=== PATIENT | female | born 1965 | race African-American/Black ===

== ENCOUNTER 2016-06-12 18:29 | Emergency (ER) | payer OTHER, MEDICAID ==
[2016-06-12] MEDS ORDERED: TORADOL 30 MG VIAL IM ONE (18:33)
[2016-06-12] MEDS ORDERED: TORADOL 30 MG VIAL ONE (18:34)
[2016-06-12] MEDS ORDERED: ADACEL TDaP IM ONE ×2 (18:34)
[2016-06-12 18:41] VITALS: BP 148/68; BMI 20.9
--- NOTE | 2016-06-12 19:11 | DR.GENAD ---
HPI - PCP Primary Care Physician: demario - Complaint/Symptoms Chief Complaint:: dog bite to right lower leg. puncture wound x 2 to outside of leg. puncture site x 1 to inside of leg - Nurses notes reviewed Nurses Notes Review: Yes - Source History Provided: Patient - Mode of Arrival Mode of Arrival: Ambulatory - Timing Onset of Chief Complaint: 06/12/16 - Duration Duration: Days PMH - PMH Past Medical History: Yes Past Medical History: Anxiety Past Surgical History: Yes Surgical History: Cholecystectomy Past Surgical History Comment: hernia repair, carpel tunnel - Family History History of Family Medical Conditions: Yes Family Medical History: Diabetes Mellitus, Cancer, Hypertension - Social History Does patient currently use any type of tobacco product: No Have you used tobacco products in the last 12 months: No Type of Tobacco Use: Cigarettes Does any household member use tobacco: No Alcohol Use: Occasionally Do you use any recreational Drugs:: No Lives With: Family Lives Where: Home - infectious screening In the last 2 months have you had wt loss of >10#?: NO Have you had fever, night sweats or hemotysis?: No Have you traveled outside the country in the last 6 months?: No Isolation: Standard PE - Vital Signs Vitals: Pulse Rate 104 Respiratory Rate 22 Blood Pressure 148/68 O2 Sat by Pulse Oximetry 98 - Discharge Plan Condition: Stable Prescriptions: Acetaminophen W/ Codeine [Tylenol/Codeine #3 300-30 mg] 1 tab PO Q4-6H PRN #15 tab PRN Reason: Pain Amoxicillin & Pot Clavulanate [AUGMENTIN TAB 875 mg/125 mg *] 1 tab PO BID #20 tab Fluconazole [DIFLUCAN TAB 150 MG *] 150 mg PO ONCE #2 tab Ibuprofen [MOTRIN TAB 600 MG *] 600 mg PO TID PRN #20 tab PRN Reason: Pain/Inflammation - Follow ups/Referrals Follow ups/Referrals: BHUPINDER MASON [Primary Care Provider] - 2 days - Instructions Instructions: Animal Bite, [id number], Puncture Wound, [id number] Additional Instructions: rRETURN TO ED IF WORSE.
[2016-06-12] MEDS ORDERED: TYLENOL #3 TAB (W/CODEINE) PO ONE ×2 (19:27→19:42)
[2016-06-12] MEDS ORDERED: AUGMENTIN XR 1000/62.5MG TAB PO ONE (19:28)
[2016-06-12] MEDS ORDERED: AMOXIL CAP 500 MG PO ONE ×2 (19:42→19:43)
[2016-06-12] MEDS ORDERED: AUGMENTIN 500 MG/125 MG TAB PO ONE ×2 (19:42→19:43)
--- NOTE | 2016-06-12 22:08 | RAD ---
History: Dog bite right lower leg. Technique: AP and lateral views of the right tibia fibula. Comparison:NONE Findings: Distal tibial metaphysis and the distal fibula were excluded from the field of view on the AP view. No acute fracture dislocation is demonstrated. There is a soft tissue irregularity along the medial and posterior aspect of the calf proximally. There is no radiopaque foreign body demonstrated. Impression: 1. Evidence of soft tissue injury compatible with history of dog bite. No radiopaque foreign body or acute osseous abnormalities demonstrated. Reported By:
== END 2016-06-12 19:58 | disposition home or self-care (01) ==
LOC: ER 18:34
DX: S81.801A Unspecified open wound, right lower leg, initial encounter (principal); W54.0XXA Bitten by dog, initial encounter; W45.8XXA Other foreign body or object entering through skin, initial encounter
CPT/HCPCS: 73590; 90471; 96372; 99282; 99283; J1885

== ENCOUNTER → 2016-11-09 | Outpatient (CLI) | payer OTHER, MEDICAID ==
--- NOTE | 2016-11-09 12:58 | MG ---
Examination: Bilateral screening mammogram. Clinical history: Routine screening. Technique: Digital CC and MLO views of both breasts were obtained. Computer aided detection analysis was performed and used during the interpretation. Comparison: 10/12/2015. Findings: The breasts are extremely dense, reducing the sensitivity of mammography. Benign-appearing calcificat ions are noted in the breasts bilaterally. A stable intramammary lymph node is present in the upper o uter aspect of the left breast. No suspicious mass, area of architectural distortion or suspicious cluster of microcalcifications is noted. Impression: 1. No mammographic evidence of malignancy. BI-RADS category 2-benign findings. Recommend routine annual screening mammogram. Diagnostic CAD was utilized and reviewed. * 0 (ZERO) - ASSESSMENT INCOMPLETE; ADDITIONAL IMAGING IS NEEDED. * 0C - ASSESSMENT INCOMPLETE, NEEDS ADDITIONAL IMAGING EVALUATION AND/OR PRIOR MAMMOGRAMS FOR COMPARI SON. * 1/1 (ONE) - NEGATIVE. * 2/II (TWO) - BENIGN FINDINGS. * 3/III (THREE) - PROBABLY BENIGN FINDING; SHORT INTERVAL FOLLOW-UP SUGGESTED. * 4/IV (FOUR) - SUSPICIOUS ABNORMALITY; BIOPSY SHOULD BE CONSIDERED. * 5/V - HIGHLY SUSPICIOUS OF MALIGNANCY; BIOPSY SHOULD BE PERFORMED. * 6/ - KNOWN BIOPSY PROVEN MALIGNANCY-APPROPRIATE ACTION SHOULD BE TAKEN. A NEGATIVE X-RAY REPORT SHOULD NOT DELAY BIOPSY IF A DOMINANT OR CLINICALLY SUSPICIOUS MASS IS PRESENT; 4 TO 8 PERCENT OF CANCERS ARE NOT IDENTIFIED BY X-RAY. A NEGATIVE REPORT MAY REINFORCE THE CLINICAL IMPRESSION. ADENOSIS AND DENSE BREASTS MAY OBSCURE AN UNDERLYING NEOPLASM. Reported By:
== END ==
LOC: RAD 09:39
PROVIDERS: ATTEND Obstetrics & Gynecology Obstetrics
DX: Z12.31 Encounter for screening mammogram for malignant neoplasm of breast (principal)
CPT/HCPCS: 77067